=== PATIENT | female | born 1975 | race Caucasian/White ===

== ENCOUNTER → 2016-12-01 | Day surgery (SDC) | payer BC ==
[2016-11-26 15:29] VITALS: BMI 22.3
[~2016-12-01] MED LIST: BACITRACIN OINT 1 EACH PACKET TOPICAL ONE; BUPIVACAIN-EPI 0.5%-1:200,000 30 ML VIAL SQ ONE; DEXAMETHASONE SOD PHOSPHATE 10 MG/ML 1 ML VIAL IV ONE; FAMOTIDINE 20 MG/2 ML VIAL IV ONE; HYDROmorphone 1 MG/ML 1 ML SYRINGE IVP PRN; LACTATED RINGERS 1,000 ML IV SCH; LIDOCAINE 1% 20 ML VIAL (10MG/ML) FOR IV START INTRADERMA ONE; LIDOCAINE 1% INJ 10MG/ML (20 ML MDV) ONE; MIDAZOLAM 2 MG/2 ML VIAL IV PRN; MIDAZOLAM 2 MG/2 ML VIAL ONE; ONDANSETRON 4 MG/2 ML VIAL IVP ONE; PROPOFOL 10 MG/ML 20 ML VIAL IV ONE; SCOPOLAMINE 1.5MG/72HR PATCH TRANSDERM ONE; fentaNYL (PF) 50 MCG/ML 2 ML AMP ONE
[2016-12-01 11:50] VITALS: TEMP 99.9
--- NOTE | 2016-12-01 12:54 | P.OP ---
Date of Procedure: 12/01/16 Preoperative Diagnosis: Right external auditory canal lesion / nevus Postoperative Diagnosis: Same Procedure(s) Performed: Right ear microscopy with excision right ear canal lesion Implants: Anesthesia: NICOLASAA Surgeon: Abram Shepard Estimated Blood Loss (ml): 0 Pathology: other (Right external auditory canal nevus) Condition: stable Disposition: PACU Indications for Procedure: This is a 41-year-old white female who had a nevus in the external auditory canal on the right. Has not been symptomatic however is starting to obstruct the superior canal and etiology is unknown and therefore the patient has decided to proceed with excision. Operative Findings: Nevus at the lateral external auditory canal/meatus on the right approximately 7 mm Description of Procedure: The patient was brought in the operative suite and placed in a supine position. The patient underwent induction of IV sedation after appropriate monitors were placed by the actuarial assistant. The patient was prepped and draped in usual aseptic fashion. The Zeiss microscope was positioned over the right ear. 1% lidocaine with [id number] epinephrine was infused subcutaneously in field block fashion. This was left to work for 7 minutes vasoconstrictive effect. The lesion was then excised grossly entirely with needlepoint electrocautery and hemostasis was noted to be good. Bacitracin ointment was placed at the base as this will be allowed to heal by secondary intention. The patient tolerated the procedure well and was transferred to postop recovery area in satisfactory condition awake and alert.
[2016-12-01 13:11] VITALS: BP 125/77; PULSE 87; RESP 18
== END | disposition home or self-care (01) ==
LOC: OR 10:39
PROVIDERS: ATTEND Otolaryngology
DX: D23.21 Other benign neoplasm of skin of right ear and external auricular canal (principal); I10 Essential (primary) hypertension; J45.909 Unspecified asthma, uncomplicated; G43.909 Migraine, unspecified, not intractable, without status migrainosus; K58.9 Irritable bowel syndrome, unspecified; Z79.52 Long term (current) use of systemic steroids; Z79.899 Other long term (current) drug therapy
CPT/HCPCS: 88305; 11441; J2250; J1100; J2405; J2001; J3010; J2704

== ENCOUNTER → 2017-02-10 | Outpatient (CLI) | payer BC ==
--- NOTE | 2017-02-10 17:30 | CT ---
EXAMINATION TYPE: CT angio chest DATE OF EXAM: 02/10/2017 5:17 PM COMPARISON: NONE HISTORY: Patient states she had reconstructive heart surgery at 4 years old. Coarctation of aorta pre ductal, postductal. CT DLP: 235.30 mGycm Automated exposure control for dose reduction was used. CONTRAST: CTA scan of the thorax is performed without and with IV Contrast, patient injected with 100 mL of Omn ipaque 350, pulmonary embolism protocol. There are 3-D post processed images.. FINDINGS: The lungs are clear of consolidation. There is no evidence of a pulmonary mass. There is no pleural e ffusion. Heart is top normal in size. There is mild ectasia of the ascending aorta compared to the re mainder of the aorta. Ascending aorta measures 3.2 cm. There is no evidence of dissection. I see no filling defects in the pulmonary arteries. There is no mediastinal adenopathy. There are no hilar masses. There is normal branching pattern of the great vessels on the aortic arch. I see no bon y destructive process. IMPRESSION: MILD ECTASIA OF THE ASCENDING AORTA. NO EVIDENCE OF PULMONARY EMBOLISM.
== END | disposition home or self-care (01) ==
LOC: RADCTMAIN 16:38
PROVIDERS: ATTEND Internal Medicine Interventional Cardiology
DX: I77.810 Thoracic aortic ectasia (principal)
CPT/HCPCS: 71275; Q9967

== ENCOUNTER → 2020-03-17 | Outpatient (CLI) | payer BC ==
--- NOTE | 2020-03-17 16:18 | EEG ---
ELECTROENCEPHALOGRAM REPORT DATE OF SERVICE: 03/17/2020. CLINICAL HISTORY: This is a 45-year-old woman with reported history of episodes of passing out with shaking of extremities. The video EEG was obtained to evaluate for seizure and epileptiform activity. Relevant medication is unknown. EEG TYPE: A routine 21-channel EEG was performed with video using the 10/20 electrode placement system. DESCRIPTION: Only wakefulness is obtained. During wakefulness, there is a posterior-dominant rhythm of low to moderate voltage, reactive, well-modulated 9.5 to 10.5 hertz activity. There is no physiological stage II sleep seen. INTERICTAL AND ICTAL: None ACTIVATION PROCEDURE: Photic stimulation did not evoke a posterior driving response. Hyperventilation was not performed because of the patient's clinical history. CLINICAL INTERPRETATION: This is a normal routine EEG. There are no focal slowing, epileptiform activity or seizure during the study. Clinical correlation is recommended. MMJULIANO / LOUIS: [id number] / MTDD
== END | disposition home or self-care (01) ==
LOC: NEUROMAIN 07:52
PROVIDERS: ATTEND Family Medicine
DX: R55 Syncope and collapse (principal)
CPT/HCPCS: 95816

== ENCOUNTER → 2023-03-11 | Outpatient (CLI) | payer MEDICAID ==
--- NOTE | 2023-03-11 08:36 | US ---
EXAMINATION TYPE: US abdomen complete DATE OF EXAM: 03/11/2023 COMPARISON: NONE CLINICAL INDICATION: Female, 48 years old with history of R74.01 ELEVATION OF LEVELS OF LIVER TRANSAM INASE L; Elevated liver enzymes TECHNIQUE: Multiple sonographic images of the abdomen are obtained. FINDINGS: EXAM MEASUREMENTS: Liver Length: 12.4 cm Gallbladder Wall: 0.3 cm CBD: 0.5 cm Spleen: 9.8 cm Right Kidney: 8.3 x 3.7 x 4.1 cm Left Kidney: 9.8 x 4.6 x 3.6 cm Pancreas: visualized portions wnl, limited by overlying midline bowel gas Liver: wnl Gallbladder: wnl Evidence for sonographic Dial's sign: no CBD: visualized portions wnl, limited by overlying bowel gas Spleen: wnl Right Kidney: wnl Left Kidney: wnl Upper IVC: wnl Abd Aorta: wnl The liver is homogenous. The intrahepatic portion of the IVC and proximal abdominal aorta are within normal limits. There is no evidence of cholelithiasis. Common bile duct is unremarkable. The visu alized portions of the pancreas are homogenous. The spleen is unremarkable. Kidneys are symmetric a nd free of hydronephrosis. No renal lesions are seen. IMPRESSION: No significant abnormalities seen.
== END | disposition home or self-care (01) ==
LOC: RADUSWWP 07:29
PROVIDERS: ATTEND Family Medicine
DX: R74.01 Elevation of levels of liver transaminase levels (principal)
CPT/HCPCS: 76700

== ENCOUNTER → 2023-12-01 | Outpatient (CLI) | payer MEDICAID ==
--- NOTE | 2023-12-08 21:46 | MM ---
Reason for Exam: Screening (asymptomatic). Last mammogram was performed 1 year(s) and 5 month(s) ago. Patient History: Menarche at age 15. Patient has no children. Postmenopausal. Paternal grandmother had breast cancer, age 60. Risk Values: Gypsy 5 year model risk: 0.9%. NCI Lifetime model risk: 9.2%. Prior Study Comparison: 12/05/2015 Bilateral Screening Mammogram, [facility]. 06/25/2022 Bilateral Screening Mammogram, [facility]. Tissue Density: There are scattered areas of fibroglandular density. Findings: Analyzed By CAD. Lateral asymmetric density left CC view posterior depth remains unchanged. There is no suspicious group of microcalcifications or new suspicious mass in either breast. Overall Assessment: Benign, BI-RAD 2 Management: Screening Mammogram of both breasts in 1 year. . Patient should continue monthly self-breast exams. A clinical breast exam by your physician is recommended on an annual basis. This exam should not preclude additional follow-up of suspicious palpable abnormalities. Note on Gypsy scores and lifetime risk: 1. A Gypsy score greater than 3% is considered moderate risk. If this is the case, consider specialist referral to assess eligibility for a risk reducing agent. 2. If overall lifetime risk for the development of breast cancer is 20% or higher, the patient may qualify for future screening with alternating mammogram and breast MRI. Electronically signed and approved by: Bronson Coleman M.D. Radiologist
== END | disposition home or self-care (01) ==
LOC: RADMAMWWP 07:30
PROVIDERS: ATTEND Family Medicine
DX: Z12.31 Encounter for screening mammogram for malignant neoplasm of breast (principal); R92.323 Mammographic fibroglandular density, bilateral breasts; Z78.0 Asymptomatic menopausal state; Z80.3 Family history of malignant neoplasm of breast
CPT/HCPCS: 77063; 77067

== ENCOUNTER 2024-12-12 20:53 | Emergency (ER) | payer MEDICAID ==
[2024-12-12 21:01] VITALS: RESP 18; TEMP 97.3
--- NOTE | 2024-12-12 22:28 | ED ---
Alcohol HPI - General Chief Complaint: Alcohol Stated Complaint: ETOH Time Seen by Provider: 12/12/24 21:54 Source: patient Mode of arrival: ambulatory Limitations: no limitations - History of Present Illness Initial Comments: This patient is a 49-year-old woman who is here with complaint of having some withdrawal symptoms. She states she is feeling a little anxious, she is having shaky/tremulous feeling. She did have an episode of nausea and vomiting. The patient states that she had been sober for approximately 1 year and then had relapse on weekend, drinking heavily. She did stop and now is having the aforementioned symptoms. The patient does not have history of seizures. She is not having any suicidal ideation. MD Complaint: alcohol withdrawal -: hour(s) Recent Trauma: No Associated Symptoms: tremors Treatments Prior to Arrival: none Chronic Alcohol Use: No - Related Data Home Medications Medication Instructions Recorded Confirmed Acetaminophen Tab [Tylenol Tab] 500 mg PO Q6HR PRN 11/26/16 12/01/16 Cholecalciferol [Vitamin D3] 1,000 unit PO DAILY 11/26/16 12/01/16 Estradiol(Dose Unknown) 1 tab PO DAILY 11/26/16 12/01/16 Metoprolol Succinate [Toprol XL] 50 mg PO AC-LUNCH 11/26/16 12/01/16 Allergies Allergy/AdvReac Type Severity Reaction Status Date / Time No Known Allergies Allergy Verified 12/12/24 21:01 Review of Systems ROS Statement: Those systems with pertinent positive or pertinent negative responses have been documented in the HPI. ROS Other: All systems not noted in ROS Statement are negative. Constitutional: Denies: fever, chills, weakness Eyes: Denies: vision change Respiratory: Denies: cough, dyspnea Cardiovascular: Reports: palpitations. Denies: chest pain, syncope Gastrointestinal: Reports: nausea, vomiting. Denies: abdominal pain, diarrhea, hematemesis, melena, hematochezia Musculoskeletal: Denies: back pain Skin: Denies: rash Neurological: Denies: headache, weakness, numbness Psychiatric: Reports: anxiety. Denies: depression, suicidal thoughts Past Medical History Past Medical History: Asthma Additional Past Medical History / Comment(s): hx migraines, tachycardia, childhood asthma, IBS, History of Any Multi-Drug Resistant Organisms: None Reported Past Surgical History: Ear Surgery Additional Past Surgical History / Comment(s): heart surgery age 4, Past Anesthesia/Blood Transfusion Reactions: Motion Sickness Past Psychological History: Anxiety, Panic Disorder Smoking Status: Never smoker Past Alcohol Use History: Abuse, Daily, Heavy Past Drug Use History: None Reported - Past Family History Mother Family Medical History: No Reported History General Exam Limitations: no limitations General appearance: alert, in no apparent distress, anxious Head exam: Present: atraumatic, normocephalic Eye exam: Present: normal appearance. Absent: scleral icterus, conjunctival injection ENT exam: Present: normal oropharynx Neck exam: Present: normal inspection Respiratory exam: Present: normal lung sounds bilaterally. Absent: respiratory distress, wheezes, rales, rhonchi, stridor, accessory muscle use Cardiovascular Exam: Present: normal rhythm, tachycardia, normal heart sounds. Absent: systolic murmur, diastolic murmur, rubs, gallop GI/Abdominal exam: Present: soft. Absent: distended, tenderness, guarding, rebound, rigid, mass Extremities exam: Present: normal inspection, normal capillary refill. Absent: pedal edema, calf tenderness Back exam: Present: normal inspection. Absent: CVA tenderness (R), CVA tenderness (L) Neurological exam: Present: alert, normal gait Skin exam: Present: warm, dry, intact, normal color. Absent: rash Course Vital Signs 12/12/24 12/12/24 20:58 23:13 Temperature 97.3 F L Pulse Rate 152 H 103 H Respiratory 18 18 Rate Blood Pressure 108/89 111/90 O2 Sat by Pulse 99 97 Oximetry Medical Decision Making - Medical Decision Making This patient is a 49-year-old woman here to have evaluation and treatment for alcohol withdrawal. The patient started on benzodiazepines and she is feeling somewhat better. At this point appears stable to continue as outpatient discussed the appropriate further care and follow-up as well as return parameters. Was pt. sent in by a medical professional or institution (, PA, ADULT SCHOOL TEACHER, urgent care, hospital, or [facility]...) When possible be specific @ -[No] Did you speak to anyone other than the patient for history (EMS, parent, family, police, friend...)? What history was obtained from this source @ -[No] Did you review nursing and triage notes (agree or disagree)? Why? @ -[I reviewed and agree with nursing and triage notes] Were old charts reviewed (outside hosp., previous admission, EMS record, old EKG, old radiological studies, urgent care reports/EKG's, [facility] records)? Report findings @ -[No old charts were reviewed] Differential Diagnosis (chest pain, altered mental status, abdominal pain women, abdominal pain men, vaginal bleeding, weakness, fever, dyspnea, syncope, headache, dizziness, GI bleed, back pain, seizure, CVA, palpatations, mental health, musculoskeletal)? @ -[Differential Mental Health Depression, anxiety, bipolar, psychosis, schizophrenia, borderline personality, situational depression, adjustment disorder, behavioral disorder, brain tumor, malingering, substance abuse, encephalopathy, medication reaction, dementia, hypothyroidism, degenerative neurologic disorder, lupus.... This is not meant to be all-inclusive list EKG interpreted by me (3pts min.). @ -[As above] X-rays interpreted by me (1pt min.). @ -[None done] CT interpreted by me (1pt min.). @ -[None done] U/S interpreted by me (1pt. min.). @ -[None done] What testing was considered but not performed or refused? (CT, X-rays, U/S, labs)? Why? @ -[None] What meds were considered but not given or refused? Why? @ -[None] Did you discuss the management of the patient with other professionals (professionals i.e. , PA, ADULT SCHOOL TEACHER, lab, RT, psych nurse, healthcare social worker, community nutrition educator, teacher, information systems security officer, trimming caser)? Give summary @ -[No] Was smoking cessation discussed for >3mins.? @ -[No] Was critical care preformed (if so, how long)? @ -[No] Were there social determinants of health that impacted care today? How? (Homelessness, low income, unemployed, alcoholism, drug addiction, t ransportation, low edu. Level, literacy, decrease access to med. care, prison, rehab)? @ -[No] Was there de-escalation of care discussed even if they declined (Discuss DNR or withdrawal of care, Hospice)? DNR status @ -[No] What co-morbidities impacted this encounter? (DM, HTN, Smoking, COPD, CAD, Cancer, CVA, ARF, Chemo, Hep., AIDS, mental health diagnosis, sleep apnea, morbid obesity)? @ -[None] Was patient admitted / discharged? Hospital course, mention meds given and route, prescriptions, significant lab abnormalities, going to OR and other pertinent info. @ -[See above Undiagnosed new problem with uncertain prognosis? @ -[No] Drug Therapy requiring intensive monitoring for toxicity (Heparin, Nitro, Insulin, Cardizem)? @ -[No] Were any procedures done? @ -[No] Diagnosis/symptom? @ -[ Acute alcohol withdrawal Acute, or Chronic, or Acute on Chronic? @ -[Acute Uncomplicated (without systemic symptoms) or Complicated (systemic symptoms)? @ -[default] Side effects of treatment? @ -[No] Exacerbation, Progression, or Severe Exacerbation? @ -[No] Poses a threat to life or bodily function? How? (Chest pain, [place], [place], pneumonia, PE, COPD, DKA, ARF, appy, cholecystitis, CVA, Diverticulitis, Homicidal, Suicidal, threat to staff... and all critical care pts) @ -[No] All treatments are based on ideal body weight as in ED triage - EKG Data -: EKG Interpreted by Me EKG shows normal: sinus rhythm, axis (Right axis deviation), intervals (Normal), QRS complexes (Normal) Rate: tachycardia (Rate 129 bpm) Interpretation: nonspecific ST-T wave changes Disposition Clinical Impression: Alcohol withdrawal syndrome Disposition: HOME SELF-CARE Condition: Good Instructions (If sedation given, give patient instructions): Alcohol Withdrawal (ED) Is patient prescribed a controlled substance at d/c from ED?: No Referrals: Luis Patton MD [Primary Care Provider] - 1-2 days
[2024-12-12] MEDS: LORazepam 1 MG TAB PO STA (22:30)
[2024-12-12] MEDS: chlordiazePOXIDE 25 MG CAP PO STA (22:31)
[2024-12-12 23:13] VITALS: BP 111/90; PULSE 103
== END 2024-12-12 23:19 | disposition home or self-care (01) ==
LOC: EC 20:53
DX: F10.239 Alcohol dependence with withdrawal, unspecified (principal); Y90.9 Presence of alcohol in blood, level not specified
CPT/HCPCS: 93005; 99284

== ENCOUNTER → 2024-12-20 | Outpatient (CLI) | payer MEDICAID ==
--- NOTE | 2024-12-20 19:31 | MM ---
Reason for Exam: Screening (asymptomatic). Last screening mammogram was performed 12 month(s) ago. Patient History: Menarche at age 15. Patient has no children. Postmenopausal. Paternal grandmother had breast cancer, age 60. Risk Values: Gypsy 5 year model risk: 1.0%. NCI Lifetime model risk: 9.1%. Prior Study Comparison: 12/05/2015 Bilateral Screening Mammogram, [facility]. 06/25/2022 Bilateral Screening Mammogram, [facility]. 12/01/2023 Bilateral MG 3D screening mammo w/cad, [facility]. Tissue Density: The breasts are heterogeneously dense, which may obscure small masses. Findings: Analyzed By CAD. Chronic nodularity on the left. There is no suspicious group of microcalcifications or new suspicious mass in either breast. Overall Assessment: Benign, BI-RAD 2 Management: Screening Mammogram of both breasts in 1 year. Patient should continue monthly self-breast exams. A clinical breast exam by your physician is recommended on an annual basis. This exam should not preclude additional follow-up of suspicious palpable abnormalities. Note on Gypsy scores and lifetime risk: 1. A Gypsy score greater than 3% is considered moderate risk. If this is the case, consider specialist referral to assess eligibility for a risk reducing agent. 2. If overall lifetime risk for the development of breast cancer is 20% or higher, the patient may qualify for future screening with alternating mammogram and breast MRI. [facility], , 12/20/2024 7:28 PM. Electronically signed and approved by: Bronson Coleman M.D. Radiologist
== END | disposition home or self-care (01) ==
LOC: RADMAMWWP 07:46
PROVIDERS: ATTEND Family Medicine
DX: Z12.31 Encounter for screening mammogram for malignant neoplasm of breast (principal); R92.333 Mammographic heterogeneous density, bilateral breasts; Z78.0 Asymptomatic menopausal state; Z80.3 Family history of malignant neoplasm of breast
CPT/HCPCS: 77063; 77067